=== PATIENT | female | born 1975 | race Caucasian/White ===

== ENCOUNTER 2024-12-22 12:58 | Outpatient (AMB) | payer BC, SELFPAY ==
--- NOTE | 2024-12-22 13:28 | HO.SPINEOV ---
Intake Visit Reasons: degenerative disc Intake Note: Mrs. Martinez is here today c/o low back pain. MRI done in [place] (broght disc). 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 HPI: This 49-year-old female developed back pain and right leg pain in an S1 distribution 2 years ago. She went to every conservative management imaginable, which improved her right leg pain but she continues to have a centralized back pain. Specifically, with standing and prolonged sitting she developed a centralized back pain that then radiates towards the right leg and can go to the outside of her right ankle. She denies weakness. She does have mild numbness over the right calf intermittently. No bowel urinary problems. She is still active with swimming and workouts but she is unable to heal completely. She had 2 surgical consultations in [employer] and in [place] and was offered a transforaminal lumbar interbody fusion or anterior lumbar interbody fusion respectively. She comes in for 3rd opinion. PMH: Noncontributory Medications: None Allergies: NKDA Social history: . Nonsmoker Physical Exam: Pleasant female. Height 6 ft weight 158 lb. Straight leg raise is negative. No motor or sensory deficits. She points towards the center of the back where the pain originates. Radiological Studies: MRI done at [facility] on 01/16/2023 shows L5-S1 degenerative disc disease with a disc herniation compressing the right S1 nerve root. A repeat MRI of October 2024 shows resolution of the disc herniation and a further collapse of the L5-S1 disc space. There is mild L4-5 degenerative disc disease. Impression/Plan: Is 49-year-old female is suffering from discogenic back pain with a radicular component. MRI shows severe degenerative disc disease L5-S1. I discussed surgical options and I explained to her why I would prefer an anterior lumbar interbody fusion as well. I discouraged an artificial disc at the L5-S1 segment based on historical results at this level where there is a high chance of auto fusion. The ALIF provides a larger fusion surface and less distraction of tissue that a TLIF. I quoted 65% success rate. I do think she is a good surgical candidate. Thank you for allowing me to participate in your patients care. total time spent was 60 minutes in counseling ,coordination of plan, personal review of imaging, surgical decision making and subsequent plan Nicko Stoll MD, PhD [facility] Trained Neurosurgeon Director, [facility] Coding Level of Care Code New Pt Level 5 (45335) Diagnoses Degenerative disc disease (DDD) of lumbar region with discogenic back pain and leg pain M51.362
--- OUTSIDE RECORDS SUMMARY | 2024-12-22 14:32 | XMS_ITS | Data Portability ---
Author Organization [facility], [facility] Address [address] [place], [place] Care Team Providers Care Help Desk Team Leader Name Role Phone NUBIA ARREDONDO Primary Care Provider [phone] Assessment No assessment recorded. Plan of Treatment Reminders Order Date Submit Date Provider Last Modified By Organization Details Last Modified Time Details Appointments None record ed. Lab None record ed. Referral None record ed. Procedures None record ed. Surgeries None record ed. Imaging None record ed. Medication Orders None record ed. Patient TargetsNo targets recorded. Patient InstructionsNo instructions recorded. Reason for Referral None Reported. Medical Equipment None Reported. Allergies No known drug allergies Medications Name Sig Start Date Stop Date Status Note LastModified by Organization Details LastModified Time sulfamethoxaz ole 800 mg-trimethopr im 160 mg tablet TAKE 1 TABLET BY MOUTH EVERY 12 HOURS 11/22 completed Not Available Not Available Not Available Vitals Date Recorded Body height Body mass index (BMI) Body weight Provider Name and Address Organization Details Last Updated DateTime 11/22/2024 182.88 cm 21.4 kg/m2 69539.59 g ANGELIQUE DAVIS PA-C [address] [place] [address], [facility] 11/22/2024 13:41:39 Social History Question Answer Notes LastModified by Organizat ion Details LastModified Time Tobacco Smoking Status Never Smoker ANGELIQUE DAVIS PA-C [address] [place] [address], , [facility] 11/22/2024 13:42:26 Has Tobacco Cessation Counseling Been Provided? No Information not available 11/22/2024 Sex: Unknown Functional Status Question Answer Note LastModified by Organization D etails LastModified Time Do you or have you ever used any other forms of tobacco or nicotine? No Information not available 11/22/2024 What is your level of alcohol consumption? None Information not available 11/22/2024 Mental Status None recorded. Family History Nothing Reported. Medical History Condition Response Coronary Artery Disease N Dyslipidemia N Gout N Artificial Joints N Thyroid Problems N Lung Disease N Depression N Pacemaker N Anemia N Back Pain Y Hearing Impairment N Anesthesia Complications N Heart Attack ([place]) N Headaches/Migraines N Deep Vein Thrombosis N Anxiety Disorder N Diabetes N Bleeding Disorder N Arthritis N Seizures/Epilepsy N Cardiac Stent N Blood Clot N Tuberculosis N AIDS/HIV N Inflammatory Bowel Disease N Acid Reflux (GERD) N Cancer N Stroke N Substance Abuse N Peripheral Vascular Disease N Asthma/COPD N Wears Glasses/Contacts N Hepatitis N Heart Disease N Organ Transplant N Rheumatoid Arthritis N Pulmonary Embolism N Fibromyalgia N Hypertension N Stomach Ulcer N Osteoporosis N Kidney Disease N Gynecological HistoryNo gynecological history recorded. Obstetrics History GPAL:G 0 P 0 0 0 0 Past Encounters Encounter ID Performer Location Encounter Start Date Encounter Closed Date Diagnosis/Indication Diagnosis SNOMED-CT Code Diagnosis ICD10 Code Diagnosis Note [id number] ANEGLIQUE DAVIS PA-C [address] [id number] 11/22/2024 13:32:01 11/22/2024 14:57:58 Lumbar radiculopathy [id number] M54.16 We had lengthy discussion today regarding her symptoms, MRI findings, and treatment options available. She seems to have had a resolution of her disc herniation significan t disc space collapse after having had a disc herniation at the L5-S1 level. She continues to have a right-side d radiculopa thy, S1 pattern. It is unclear whether she is dynamicall y unstable at this level with increasing compressio n in the foramen. Versus this just some scar tissue and tethering from her previous herniation . She had the opinion of an anterior lumbar interbody fusion with a different provider. A lot of this is certainly a decent option, I would prefer not to have to fuse the L5-S1 level if possible given some wear at L4-5 as well. I think she may benefit from just doing a decompress ion and freeing up the right L5 and S1 nerve roots. This may be all she really needs. If she continues to have significan t lower back discomfort from the disc space collapse she could entertain the intercept procedure versus going through with the fusion at the L5-S1 level. She expressed understand ing. She is set for an updated MRI later this month and she will follow-up with Dr. Swanson to discuss those findings and to discuss the possible treatment options moving forward including the 2 surgeries. She expressed understand ing. All questions answered to her satisfacti on. Total visit time was 49 minutes in length including face-to-fa ce and non-face-t o-face time. Health Concerns Section Related Observation LastModified by Organization Detai ls LastModified Time None Recorded Concern Status LastModified by Organization Details LastModified Time None Recorded Advance Directives Directive None Recorded Payers Insurance Date Sequence Insurance Name Policy Number Policy Ruiz Covered Member ID Ruiz Member ID Guarantor Name 11/21/2024 1 [id number] [id number] Praveen Martinez [id number] Bianca Martinez Notes Date Note Type Note Provider Name and Address Organization Details Recorded Time 11/22/2024 text/html Bianca comes in today for the evaluation of her ongoing lower back and right sided leg pain. She notes her pain is in her lower back radiating down to her right sided buttock area and down her lateral thigh to her lateral calf and bottom inside of her foot and a mixed L5 and S1 distribution. She has significantly more pain when she is standing or sitting but has no pain when she gets lying down. She denies any left-sided symptoms. Her pain began back in 2022 where she was found to have a right sided L5-S1 disc herniation in the right lateral recess and position to irritate the right S1 nerve root. At the time her disc was fairly tall at this level and only had some mild degenerative changes as well as some mild degenerative changes at L4-5. She continued to have significant pain but underwent multiple conservative treatments including physical therapy and injection therapy. Her symptoms waxed and waned a bit through this timeframe. She underwent another MRI and March of last year that showed significant disc space collapse at the L5-S1 level but a resolution of her previous right sided L5-S1 disc herniation. Due to the disc space collapse she was starting to develop some right sided foraminal narrowing. She also had some Modic changes on the the right-hand side along the endplates at L5 and S1. She is scheduled for another MRI later this month. She has seen multiple providers and at this point has had a recommendation for an L5-S1 ALIF stand-alone. She comes in today seeking a second opinion to that surgery. ANGELIQUE DAVIS PA-C [address] [place] [address], [phone], [facility] 11/23/2024 16:49:46 OBGyn Episode No OBEpisode recorded.
== END 2024-12-22 13:53 | disposition home or self-care (01) ==
LOC: HO.HNS 12:59
PROVIDERS: Visit Provider Neurological Surgery
DX: M51.362 Other intervertebral disc degeneration, lumbar region with discogenic back pain and lower extremity pain (principal)
CPT/HCPCS: 99205